=== PATIENT | female | born 1985 | race American Indian/Alaskan Native ===

== ENCOUNTER 2018-02-26 09:28 | Emergency (ER) | payer OTHER ==
[2018-02-26 09:37] VITALS: BP 110/71
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
== END 2018-02-26 10:10 | disposition home or self-care (01) ==
LOC: ED 09:28
DX: M54.5 Low back pain (principal); M54.2 Cervicalgia; Z88.6 Allergy status to analgesic agent; Z88.4 Allergy status to anesthetic agent; V89.2XXA Person injured in unspecified motor-vehicle accident, traffic, initial encounter; Y93.89 Activity, other specified; Y99.8 Other external cause status; Y92.410 Unspecified street and highway as the place of occurrence of the external cause
CPT/HCPCS: 99282